=== PATIENT | male | born 1985 | race African-American/Black ===

== ENCOUNTER 2020-03-20 10:00 | Emergency (ER) | payer SELFPAY ==
[~2020-03-20] VITALS: Ht 182.9 cm; Wt 86.2 kg
[2020-03-20 10:00] VITALS: BP 148/84
[~2020-03-20 10:00] MED LIST: DiphenhydrAMINE 50mg/ml Inj IM ONE; Haloperidol 5mg/ml Inj IM ONE; Ketamine 500mg/10ml vial IM ONE; LORazepam Inj 2mg/ml 1ml IM ONE
--- NOTE | 2020-03-20 10:00 | NUR ---
ED Nurse Note: Pt arrived with [facility] hostile and threatening staff. pt was consoble when talking to calmly. pt has a delusional thought process but care handler is in waiting room.
[2020-03-20 10:04] VITALS: BP 156/94
--- NOTE | 2020-03-20 10:10 | NUR ---
ED Nurse Note: KYLAH spoke with care handler and stated the they refuse pt to be sedated and that the pt will return to their psych facility. [facility] to [facility] with [facility]. Addendum: 03/20/20 at 1014 by PDELEON D Nurse Note: KYLAH spoke with care handler and stated that they refuse pt to be sedated and that the pt will return to their psych facility. Medications returned to [facility] with witness.
--- NOTE | 2020-03-20 10:13 | NUR ---
ED Nurse Note: EKG completed by re examiner
--- NOTE | 2020-03-20 10:17 | Emergency Room Report ---
History of Present Illness General Chief Complaint: Syncope Source: Patient, Caregiver Present Illness HPI 34-year-old male history of syncope, history of schizophrenia, history of pseudoseizures presents with syncopal event prior to arrival, lasting only a few moments, with quick resolution of consciousness no evidence of head trauma, patient states she he just fell out, no known aggravating relieving factors severity is mild, lasting a few seconds, patient denies any chest pain or shortness of breath. Patient states he feels fine and does not want any blood work done. Patient was initially agitated on examination however verbal de- escalation was conducted. No chest pain no shortness of breath Bakari caregiver at bedside. Allergies: Coded Allergies: UNABLE TO ASSESS (Unverified , 03/20/20) Patient History Limited by: medical condition - Schizophrenia Past Medical History: see triage record Reviewed Nursing Documentation: PMH: Agreed; PSxH: Agreed Review of Systems All Other Systems: limited - Schizophrenia Medical Decision Making Diagnostic Impression: Primary Impression: Syncope Qualified Codes: R55 - Syncope and collapse ER Course 34-year-old male presents with syncopal-like symptoms, with rapid resolution of consciousness, no evidence of head trauma, EKG unremarkable disposition home with return precautions patient will be discharged with Bakari the caregiver from the psychiatric facility EKG Diagnostic Results EKG Time: 10:13 EP Interpretation: NSR, rate 69, QTc 394, no acute ST elevations, normal axis Disposition: PSYCH HOSP/UNIT - Psych facility caregiver Bakari Condition: Stable Referrals: [facility] Patient Instructions: Syncope, [id number], Vasovagal Syncope, Adult Additional Instructions: The patient was provided with discharge instructions, notified to follow-up with a primary care doctor and or specialist in the next 24-48 hours, and to return to the ED if they have worsening of their symptoms. Please note that this report is being documented using [employer] technology. This can lead to erroneous entry secondary to incorrect interpretation by the dictating instrument. Jonah Andrews MD March 20, 2020 10:17
--- NOTE | 2020-03-20 10:25 | NUR ---
ER DISCHARGE NOTE: Patient is cleared to be discharged per ERMD, pt is aox4, on room air, with stable vital signs. pt was given dc instructions, pt was able to verbalize understanding, pt id band removed. pt is able to ambulate with steady gait. pt took all belongings. pt accompanied with primar care handler.
== END 2020-03-20 10:25 ==
LOC: EDBD 10:00 → EMR 10:22
DX: R55 Syncope and collapse (principal); F20.9 Schizophrenia, unspecified
CPT/HCPCS: 93005; 99283